=== PATIENT | male | born 1940 | race Caucasian/White ===

== ENCOUNTER → 2021-03-18 09:34 | Outpatient (CLI) | payer MEDICARE ==
[2014-07-28 12:10] VITALS: BMI 34.4
[~2021-03-18 09:34] MED LIST: BAYER CHEWABLE81 MG PO; BRILINTA90 MG PO; CARDURA4 MG PO; CENTRUM COMPLE1 EACH PO; EXFORGE HCT 101 EAC2 PO; GLUCOSAMINE & C1 CAP PO; HYDROCHLOROTH12.5 M1 PO; IPRAT-ALBUT 0.5-3 ML UPD; NAPROSYN375 MG PO; PEPCID20 MG PO; PROZAC10 MG PO; PULMICORT0.5 MG/21 INH
--- NOTE | 2021-03-22 08:00 | EC ---
PATIENT:JENNIE VELAZQUEZ DATE OF SERVICE: 03/18/21 SEX: M MEDICAL RECORD: [id number] DATE OF : 40 LOCATION:D[facility] AGE OF PATIENT: 81 ADMISSION DATE: 03/18/21 REFERRING PHYSICIAN: INTERPRETING PHYSICIAN: AUSTEN ANGEL MD ECHOCARDIOGRAM REPORT ECHO CHARGES 4 ECHO COMPLETE Date: 03/18/21 CLINICAL DIAGNOSIS: CHEST PAIN, ASSESS EF/,MITRAL REGURG/AORTIC SCLEROSIS ECHOCARDIOGRAPHIC MEASUREMENTS (adult normal given) AC root (d.<3.7cm) 3.8 cm LV Septum d (<1.2 cm> 1.4 cm Valve Excursion 2.0 cm LV Septum (systole) 1.7 cm Left Atria (s.<4.0cm> 3.8 cm LVPW d(<1.2cm) 1.6 cm RV (d.<2.3cm) 4.9 cm LVPW (sytole) 1.8 cm LV diastole(<5.6CM) 5.1 cm MV E-F(>70mm/sec) cm LV systole 4.0 cm LVOT Diameter 1.8 cm MV exc.(>10mm) 1.0 cm Est.ejection fraction (50-75%) % DOPPLER: LVIT cm/sec A 128.0cm/sec E 147.0 cm/sec LA cm/sec RVSP 29 mmHg LVOT 104 cm/sec AOP1/2T m/s Asc. Ao 150 cm/sec RVOT 99 cm/sec RA cm/sec PA 132 cm/sec AV Gradient Peak 9.05 mmHg AV Mean 4.38 mmHg AV Area 1.8 cm MV Gradient Peak 10.12mmHg MV Mean 4.53 mmHg MV Area cm COMMENTS: Quotation Clerk: 2 FRANSISCO LAWRENCE Pit Furnace Melter: 3 Dr. Mcdonald TAPE# PACS Pericardial Effusion N DATE OF SERVICE: Adequate 2D, color flow imaging, spectral Doppler, and M-Mode LVH is present. LV internal dimensions are normal. Wall motion is normal. EF is greater than or equal to 55%. Aortic valve is sclerotic. No evidence of stenosis by Doppler interrogation. Left atrium is normal at 3.8 cm. Mitral valve shows no prolapse. Mild MR. Right-sided chambers are grossly normal. Trace TR. ECHOCARDIOGRAM REPORT [id number] JENNIE VELAZQUEZ TRANSINT:[id number] Voice Confirmation ID: [id number] DOCUMENT ID: [id number] AUSTEN ANGEL MD at 0800 CC: [id number] DICTATION DATE: 03/19/21 1142 CHARGE ENTRY: 03/19/21 1536 [facility] CLI 03/18/21 [place] [id number] [place] [id number]
== END | disposition home or self-care (01) ==
LOC: D.HCCECHO 09:34
PROVIDERS: ATTEND Internal Medicine Cardiovascular Disease
DX: R07.9 Chest pain, unspecified (principal)